=== PATIENT | female | born 1990 | race Caucasian/White ===

== ENCOUNTER 2017-11-28 15:21 | Inpatient (IN) | payer MEDICAID, OTHER ==
[2017-11-28] MEDS: HYDROmorphONE 2 MG/ML SYG IV (16:27)
[2017-11-28] MEDS: ONDANSETRON 4 MG INJ IV (16:27)
[2017-11-28] MEDS: CEFAZOLIN 1 GM/50 ML (PMX) 50 ML IVPB (17:13)
[2017-11-28] MEDS: SOD CHLORIDE 0.9% 1,000 ML IV ×2 (17:13→20:07)
[2017-11-28 17:15] LABS: ADD MAN DIFF? NO
[2017-11-28 17:23] LABS: BASOPHILS % 0.2 % (0.0-2.0); EOSINOPHILS % 0.2 % (0.0-7.0); HEMATOCRIT 40.8 % (37.0-47.0); HEMOGLOBIN 14.2 g/dl (12.0-16.0); LYMPHOCYTES # 0.8 10^3/ul (0.8-2.9); LYMPHOCYTES % 5.1 % (15.0-51.0); MEAN CORPUSCULAR HEMOGLOBIN 33.6 pg (29.0-33.0); MEAN CORPUSCULAR HGB CONC 34.8 g/dl (32.0-37.0); MEAN CORPUSCULAR VOLUME 96.7 fl (82.0-101.0); MEAN PLATELET VOLUME 8.7 fl (7.4-10.4); MONOCYTE # 0.7 10^3/ul (0.3-0.9); MONOCYTES % 4.5 % (0.0-11.0); NEUTROPHIL # 14.4 10^3/ul (1.6-7.5); NEUTROPHILS % 89.6 % (39.0-77.0); PLATELET COUNT 278 10^3/UL (140-415); RED BLOOD COUNT 4.22 10^6/ul (4.20-5.40); RED CELL DISTRIBUTION WIDTH 12.7 % (11.5-14.5)
[2017-11-28 17:23] LABS: WHITE BLOOD COUNT 16.1 10^3/ul (4.8-10.8)
[2017-11-28] MEDS ORDERED: ONDANSETRON 4 MG INJ IV ×2 (17:30→23:30)
[2017-11-28] MEDS ORDERED: NACL 0.9% 3 ML SYG IV (17:30)
[2017-11-28] MEDS ORDERED: ACETAMINOPHEN 325 MG TAB PO ×2 (17:30)
[2017-11-28] MEDS ORDERED: VANCOMYCIN IV PER PHARMACY XX (17:30)
[2017-11-28 17:41] LABS: ANION GAP 18 (8-16); BLOOD UREA NITROGEN 15 mg/dl (7-20); CALCIUM 9.2 mg/dl (8.4-10.2); CARBON DIOXIDE 21 mmol/L (21-31); CHLORIDE 106 mmol/L (97-110); CREATININE 0.71 mg/dl (0.44-1.00); GLUCOSE 125 mg/dl (70-220); POTASSIUM 3.7 mmol/L (3.5-5.1); SODIUM 141 mmol/L (135-144)
[2017-11-28 17:50] LABS: INR 0.99; PROTIME 13.2 Sec (11.9-14.9)
[2017-11-28 17:51] LABS: PARTIAL THROMBOPLASTIN TIME 28.4 Sec (25.0-35.0)
[2017-11-28 17:53] LABS: TROPONIN-I < 0.010 ng/ml (0.000-0.120)
[2017-11-28] MEDS: morphine 2 MG INJ IV (17:53)
[2017-11-28] MEDS ORDERED: PIPER-TAZO 3.375 GM IV (PMX) 100 ML IVPB (18:00)
[2017-11-28] MEDS ORDERED: CEFTRIAXONE 1 GM/50 ML (PMX) 50 ML IVPB (18:00)
[2017-11-28] MEDS ORDERED: VANCOMYCIN 1.5 GM in SOD CHLORIDE 0.9% 250 ML IVPB (18:00)
[2017-11-28] MEDS ORDERED: CEFEPIME 1GM/50 ML (PMX) 50 ML IVPB (18:00)
[2017-11-28] MEDS: AMPICILLIN/SULB 3 GM/NS (PMX) 100 ML IVPB (19:38)
[2017-11-28] MEDS: HYDROCODONE/APAP (5/325) TAB PO (20:39)
[2017-11-28] MEDS: HYDROmorphONE 0.5 MG/0.5 ML SYG IV (22:27)
[2017-11-28] MEDS ORDERED: HYDROmorphONE 1 MG/5 ML IV SYRINGE IV ×3 (23:30)
[2017-11-28] MEDS ORDERED: DIPHENHYDRAMINE 50 MG INJ IV (23:30)
[2017-11-29] MEDS ORDERED: CEFAZOLIN 1 GM/50 ML (PMX) 50 ML IVPB
[2017-11-29] MEDS ORDERED: FENTAnyl 50 MCG/ML VIAL (00:11)
[2017-11-29] MEDS ORDERED: MIDAZOLAM 1 MG/ML 2 ML INJ (00:11)
[2017-11-29] MEDS ORDERED: METOCLOPRAMIDE 10 MG INJ (00:11)
[2017-11-29] MEDS ORDERED: ONDANSETRON 4 MG INJ (01:10)
[2017-11-29] MEDS ORDERED: PROPOFOL 20 ML (01:10)
[2017-11-29] MEDS ORDERED: KETOROLAC 30 MG INJ (01:11)
[2017-11-29] MEDS: BACITRACIN 50000 UNITS INJ (01:31)
[2017-11-29] MEDS: POLYMYXIN/BACITRACIN 1L IRRIG IRR (01:32)
[2017-11-29] MEDS: POLYMYXIN B 500000 UNIT INJ (01:32)
[2017-11-29] MEDS: MEPERIDINE 25 MG INJ IV (01:40)
[2017-11-29] MEDS ORDERED: NACL 0.9% 3 ML SYG IV (02:00)
[2017-11-29] MEDS: D5W-0.45 NACL + KCL 20 MEQ 1,000 ML IV ×4 (02:16→20:38)
[2017-11-29] MEDS: morphine 2 MG INJ IV ×5 (02:48→20:37)
[2017-11-29] MEDS: SOD CHLORIDE 0.9% 1,000 ML IV ×3 (03:22→23:22)
[2017-11-29] MEDS: AMPICILLIN/SULB 3 GM/NS (PMX) 100 ML IVPB ×4 (04:01→17:23)
[2017-11-29 05:08] LABS: ADD MAN DIFF? NO
[2017-11-29 05:14] LABS: BASOPHILS % 0.1 % (0.0-2.0); EOSINOPHILS % 0.1 % (0.0-7.0); HEMATOCRIT 36.2 % (37.0-47.0); HEMOGLOBIN 12.4 g/dl (12.0-16.0); LYMPHOCYTES # 1.4 10^3/ul (0.8-2.9); LYMPHOCYTES % 8.5 % (15.0-51.0); MEAN CORPUSCULAR HEMOGLOBIN 32.5 pg (29.0-33.0); MEAN CORPUSCULAR HGB CONC 34.3 g/dl (32.0-37.0); MEAN CORPUSCULAR VOLUME 94.8 fl (82.0-101.0); MEAN PLATELET VOLUME 8.9 fl (7.4-10.4); MONOCYTE # 0.9 10^3/ul (0.3-0.9); MONOCYTES % 5.5 % (0.0-11.0); NEUTROPHIL # 13.7 10^3/ul (1.6-7.5); NEUTROPHILS % 85.4 % (39.0-77.0); PLATELET COUNT 262 10^3/UL (140-415); RED BLOOD COUNT 3.82 10^6/ul (4.20-5.40); RED CELL DISTRIBUTION WIDTH 12.7 % (11.5-14.5)
[2017-11-29 05:14] LABS: WHITE BLOOD COUNT 16.1 10^3/ul (4.8-10.8)
[2017-11-29 05:43] LABS: ALANINE AMINOTRANSFERASE 20 IU/L (13-69); ALBUMIN 3.7 g/dl (3.3-4.9); ALBUMIN/GLOBULIN RATIO 1.19; ALKALINE PHOSPHATASE 61 IU/L (42-121); ANION GAP 16 (8-16); ASPARTATE AMINO TRANSFERASE 38 IU/L (15-46); BILIRUBIN,INDIRECT 0.7 mg/dl (0-1.1); BILIRUBIN,TOTAL 0.7 mg/dl (0.2-1.3); BLOOD UREA NITROGEN 7 mg/dl (7-20); CALCIUM 7.9 mg/dl (8.4-10.2); CARBON DIOXIDE 19 mmol/L (21-31); CHLORIDE 112 mmol/L (97-110); CREATININE 0.55 mg/dl (0.44-1.00); GLUCOSE 117 mg/dl (70-220); MAGNESIUM 1.6 mg/dl (1.7-2.5); POTASSIUM 3.7 mmol/L (3.5-5.1); SODIUM 143 mmol/L (135-144); TOTAL PROTEIN 6.8 g/dl (6.1-8.1)
[2017-11-29] MEDS: HYDROCODONE/APAP (5/325) TAB PO ×4 (07:38→22:44)
[2017-11-29] MEDS: TRIMETHOPRIM/SULFAMETHOXAZOLE 15 ML in DEXTROSE 5% 500 ML IVPB (18:26)
[2017-11-29] MEDS: ONDANSETRON 4 MG INJ IV (20:45)
[2017-11-30] MEDS: AMPICILLIN/SULB 3 GM/NS (PMX) 100 ML IVPB ×3 (00:33→12:45)
[2017-11-30] MEDS: TRIMETHOPRIM/SULFAMETHOXAZOLE 15 ML in DEXTROSE 5% 500 ML IVPB ×3 (03:03→19:23)
[2017-11-30] MEDS: HYDROCODONE/APAP (5/325) TAB PO ×4 (03:09→17:25)
[2017-11-30 05:18] LABS: ADD MAN DIFF? NO
[2017-11-30 05:27] LABS: ABNORMAL IP MESSAGE 1; BASOPHILS % 0.1 % (0.0-2.0); EOSINOPHILS % 0.2 % (0.0-7.0); HEMATOCRIT 35.6 % (37.0-47.0); HEMOGLOBIN 12.2 g/dl (12.0-16.0); LYMPHOCYTES # 0.5 10^3/ul (0.8-2.9); MEAN CORPUSCULAR HEMOGLOBIN 32.1 pg (29.0-33.0); MEAN CORPUSCULAR HGB CONC 34.3 g/dl (32.0-37.0); MEAN CORPUSCULAR VOLUME 93.7 fl (82.0-101.0); MEAN PLATELET VOLUME 9.1 fl (7.4-10.4); MONOCYTE # 0.6 10^3/ul (0.3-0.9); MONOCYTES % 6.6 % (0.0-11.0); NEUTROPHIL # 7.3 10^3/ul (1.6-7.5); NEUTROPHILS % 86.9 % (39.0-77.0); PLATELET COUNT 212 10^3/UL (140-415); RED CELL DISTRIBUTION WIDTH 12.8 % (11.5-14.5)
[2017-11-30 05:27] LABS: WHITE BLOOD COUNT 8.4 10^3/ul (4.8-10.8)
[2017-11-30 05:54] LABS: POSITIVE DIFF @See below
[2017-11-30 06:20] LABS: ANION GAP 14 (8-16); BLOOD UREA NITROGEN 2 mg/dl (7-20); C-REACTIVE PROTEIN 4.1 mg/dl (0.0-0.9); CALCIUM 8.6 mg/dl (8.4-10.2); CARBON DIOXIDE 23 mmol/L (21-31); CHLORIDE 106 mmol/L (97-110); CREATININE 0.55 mg/dl (0.44-1.00); GLUCOSE 161 mg/dl (70-220); POTASSIUM 3.5 mmol/L (3.5-5.1); SODIUM 139 mmol/L (135-144)
[2017-11-30 08:19] LABS: ERYTHROCYTE SEDIMENTATION RATE 15 mm/Hr (0-20)
[2017-11-30] MEDS: morphine 2 MG INJ IV ×4 (08:36→23:34)
[2017-11-30] MEDS: SOD CHLORIDE 0.9% 1,000 ML IV (09:22)
[2017-11-30] MEDS: ONDANSETRON 4 MG INJ IV (11:08)
[2017-11-30] MEDS: D5W-0.45 NACL + KCL 20 MEQ 1,000 ML IV (12:48)
[2017-11-30] MEDS: PIPER-TAZO 3.375 GM IV (PMX) 100 ML IVPB ×2 (18:23→23:43)
[2017-12-01] MEDS: TRIMETHOPRIM/SULFAMETHOXAZOLE 15 ML in DEXTROSE 5% 500 ML IVPB ×4 (02:40→20:10)
[2017-12-01] MEDS: morphine 2 MG INJ IV ×4 (03:51→20:11)
[2017-12-01] MEDS: PIPER-TAZO 3.375 GM IV (PMX) 100 ML IVPB ×3 (06:42→17:25)
[2017-12-01] MEDS: HYDROCODONE/APAP (5/325) TAB PO ×3 (10:29→21:41)
[2017-12-02] MEDS: PIPER-TAZO 3.375 GM IV (PMX) 100 ML IVPB ×5 (00:41→23:36)
[2017-12-02] MEDS: morphine 2 MG INJ IV ×4 (00:54→23:52)
[2017-12-02] MEDS: TRIMETHOPRIM/SULFAMETHOXAZOLE 15 ML in DEXTROSE 5% 500 ML IVPB ×3 (02:05→19:08)
[2017-12-02] MEDS: HYDROCODONE/APAP (5/325) TAB PO (12:20)
[2017-12-03] MEDS: ONDANSETRON 4 MG INJ IV ×2 (00:32→23:34)
[2017-12-03] MEDS: TRIMETHOPRIM/SULFAMETHOXAZOLE 15 ML in DEXTROSE 5% 500 ML IVPB ×3 (02:39→18:00)
[2017-12-03 05:47] LABS: CREATININE 0.76 mg/dl (0.44-1.00)
[2017-12-03 05:47] LABS: BLOOD UREA NITROGEN 8 mg/dl (7-20)
[2017-12-03] MEDS: PIPER-TAZO 3.375 GM IV (PMX) 100 ML IVPB ×3 (05:59→18:00)
[2017-12-03] MEDS: morphine 2 MG INJ IV (07:40)
[2017-12-03] MEDS: morphine 4 MG/ML VIAL IV (12:23)
[2017-12-03] MEDS ORDERED: MIDAZOLAM 1 MG/ML 2 ML INJ (17:14)
[2017-12-03] MEDS ORDERED: DIPHENHYDRAMINE 50 MG INJ IV (17:30)
[2017-12-03] MEDS ORDERED: MEPERIDINE 25 MG INJ IV (17:30)
[2017-12-03] MEDS ORDERED: HYDROmorphONE 1 MG/5 ML IV SYRINGE IV ×2 (17:30)
[2017-12-03] MEDS ORDERED: ONDANSETRON 4 MG INJ IV (17:30)
[2017-12-03] MEDS ORDERED: METOCLOPRAMIDE 10 MG INJ IV (17:30)
[2017-12-03] MEDS ORDERED: FENTAnyl 50 MCG/ML VIAL IV (17:30)
[2017-12-03] MEDS: BACITRACIN 50000 UNITS INJ IRR (17:47)
[2017-12-03] MEDS: POLYMYXIN/BACITRACIN 1L IRRIG (17:47)
[2017-12-03] MEDS: POLYMYXIN B 500000 UNIT INJ (17:47)
[2017-12-03] MEDS: VANCOMYCIN 1 GM INJ (17:47)
[2017-12-03] MEDS ORDERED: morphine 10 MG INJ (19:09)
[2017-12-03] MEDS ORDERED: BACITRACIN 50000 UNITS INJ (20:02)
[2017-12-03] MEDS ORDERED: ONDANSETRON 4 MG INJ (21:25)
[2017-12-03] MEDS ORDERED: ROCURONIUM 50 MG INJ (21:25)
[2017-12-03] MEDS ORDERED: PROPOFOL 20 ML (21:25)
[2017-12-03] MEDS ORDERED: LIDOCAINE 2% (SDV) 5 ML INJ (21:25)
[2017-12-03] MEDS ORDERED: CEFAZOLIN 1 GM INJ (21:27)
[2017-12-03] MEDS ORDERED: ROPIVACAINE 0.5 % 30 ML VIAL (21:27)
[2017-12-03] MEDS ORDERED: FENTAnyl 50 MCG/ML VIAL (21:59)
[2017-12-03] MEDS ORDERED: morphine 2 MG INJ IV (22:30)
[2017-12-03] MEDS ORDERED: NALOXONE (0.4 MG/ML) INJ IV (23:00)
[2017-12-03 23:06] LABS: ADD MAN DIFF? NO
[2017-12-03 23:09] LABS: BASOPHILS % 0.2 % (0.0-2.0); EOSINOPHILS % 0.2 % (0.0-7.0); HEMATOCRIT 35.9 % (37.0-47.0); HEMOGLOBIN 12.3 g/dl (12.0-16.0); LYMPHOCYTES # 0.6 10^3/ul (0.8-2.9); LYMPHOCYTES % 9.4 % (15.0-51.0); MEAN CORPUSCULAR HGB CONC 34.3 g/dl (32.0-37.0); MEAN CORPUSCULAR VOLUME 93.5 fl (82.0-101.0); MEAN PLATELET VOLUME 8.4 fl (7.4-10.4); MONOCYTE # 0.3 10^3/ul (0.3-0.9); MONOCYTES % 4.2 % (0.0-11.0); NEUTROPHIL # 5.5 10^3/ul (1.6-7.5); NEUTROPHILS % 85.7 % (39.0-77.0); PLATELET COUNT 298 10^3/UL (140-415); RED BLOOD COUNT 3.84 10^6/ul (4.20-5.40); RED CELL DISTRIBUTION WIDTH 12.6 % (11.5-14.5)
[2017-12-03 23:09] LABS: WHITE BLOOD COUNT 6.4 10^3/ul (4.8-10.8)
[2017-12-03] MEDS: SCOPOLAMINE 1.5 MG PATCH TRANSDERM (23:30)
[2017-12-03] MEDS: METOCLOPRAMIDE 10 MG INJ IV (23:37)
[2017-12-04] MEDS: PIPER-TAZO 3.375 GM IV (PMX) 100 ML IVPB ×5 (00:41→23:49)
[2017-12-04] MEDS: D5W-0.45 NACL + KCL 20 MEQ 1,000 ML IV ×2 (00:41→08:18)
[2017-12-04] MEDS: TRIMETHOPRIM/SULFAMETHOXAZOLE 15 ML in DEXTROSE 5% 500 ML IVPB ×3 (02:40→18:03)
[2017-12-04] MEDS: morphine 4 MG/ML VIAL IV ×2 (05:44→07:54)
[2017-12-04] MEDS: HYDROCODONE/APAP (5/325) TAB PO (06:09)
[2017-12-04] MEDS: morphine 2 MG INJ IV (06:51)
[2017-12-04] MEDS: HYDROmorphONE 1 MG/ML SYG IV (09:22)
[2017-12-04] MEDS: KETOROLAC 15 MG INJ IV (11:55)
[2017-12-04] MEDS: HYDROmorphONE 0.2 MG/ML PCA IV ×3 (12:12→22:45)
[2017-12-04] MEDS: BISACODYL (EC) 5 MG TAB PO (12:21)
[2017-12-05] MEDS: TRIMETHOPRIM/SULFAMETHOXAZOLE 15 ML in DEXTROSE 5% 500 ML IVPB ×3 (02:21→18:31)
[2017-12-05] MEDS: PIPER-TAZO 3.375 GM IV (PMX) 100 ML IVPB ×3 (05:27→17:36)
[2017-12-05] MEDS: HYDROmorphONE 0.2 MG/ML PCA IV ×3 (05:57→19:20)
[2017-12-05] MEDS: ONDANSETRON 4 MG INJ IV (11:39)
[2017-12-05] MEDS: DOCUSATE SODIUM 100 MG CAP PO (11:39)
[2017-12-05] MEDS: BISACODYL (EC) 5 MG TAB PO (11:39)
[2017-12-06] MEDS: PIPER-TAZO 3.375 GM IV (PMX) 100 ML IVPB ×5 (00:33→23:42)
[2017-12-06] MEDS: TRIMETHOPRIM/SULFAMETHOXAZOLE 15 ML in DEXTROSE 5% 500 ML IVPB ×3 (02:19→18:07)
[2017-12-06] MEDS: HYDROmorphONE 0.2 MG/ML PCA IV ×4 (03:55→23:50)
[2017-12-06] MEDS: DOCUSATE SODIUM 100 MG CAP PO (08:55)
[2017-12-06] MEDS: BISACODYL (EC) 5 MG TAB PO (08:55)
[2017-12-06] MEDS: ONDANSETRON 4 MG INJ IV (09:32)
[2017-12-06] MEDS: MAGNESIUM HYDROXIDE 30ML CUP PO (12:01)
[2017-12-06] MEDS: ENOXAPARIN 30 MG/0.3 ML SYG SC (17:25)
[2017-12-07] MEDS: TRIMETHOPRIM/SULFAMETHOXAZOLE 15 ML in DEXTROSE 5% 500 ML IVPB ×3 (01:33→17:03)
[2017-12-07] MEDS: PIPER-TAZO 3.375 GM IV (PMX) 100 ML IVPB ×3 (05:32→18:20)
[2017-12-07] MEDS: HYDROmorphONE 0.2 MG/ML PCA IV (13:19)
[2017-12-07] MEDS: HYDROCODONE/APAP (5/325) TAB PO ×2 (15:22→18:52)
[2017-12-07] MEDS: ENOXAPARIN 30 MG/0.3 ML SYG SC (18:26)
[2017-12-08] MEDS: PIPER-TAZO 3.375 GM IV (PMX) 100 ML IVPB ×3 (00:34→11:53)
[2017-12-08] MEDS: HYDROmorphONE 1 MG/ML SYG IV ×2 (01:20→06:42)
[2017-12-08] MEDS: TRIMETHOPRIM/SULFAMETHOXAZOLE 15 ML in DEXTROSE 5% 500 ML IVPB ×2 (03:38→09:11)
[2017-12-08] MEDS: HYDROCODONE/APAP (5/325) TAB PO ×3 (03:45→11:52)
[2017-12-08] MEDS: ONDANSETRON 4 MG INJ IV (06:42)
== END 2017-12-08 14:30 | disposition home or self-care (01) | DRG 511 ==
LOC: E/R 15:21 → MS1 17:20
PROC: 0PSH04Z Reposition Right Radius with Internal Fixation Device, Open Approach (ICD-10-PCS; principal; 2017-11-29 00:03)
PROC: 0PSHXZZ Reposition Right Radius, External Approach (ICD-10-PCS; 2017-11-29 00:03)
PROC: 0PSKXZZ Reposition Right Ulna, External Approach (ICD-10-PCS; 2017-11-29 00:03)
DX: S52.501B Unspecified fracture of the lower end of right radius, initial encounter for open fracture type I or II (principal); R65.10 Systemic inflammatory response syndrome (SIRS) of non-infectious origin without acute organ dysfunction; S52.601B Unspecified fracture of lower end of right ulna, initial encounter for open fracture type I or II; V43.52XA Car driver injured in collision with other type car in traffic accident, initial encounter; Y92.488 Other paved roadways as the place of occurrence of the external cause
CPT/HCPCS: 36415; 71045; 73090-RT; 73610-RT; 80048; 80053; 81025; 82565; 83735; 84484; 84520; 85025; 85610; 85651; 85730; 86140; 93005; 96374; 96375; 99291-25